=== PATIENT | female | born 1965 | race Caucasian/White ===

== ENCOUNTER 2021-02-23 08:21 | Outpatient (CLI) | payer BC | END 2021-02-23 08:22 | disposition home or self-care (01) | LOC: CSHMAMMO 08:21 | PROVIDERS: ATTEND Internal Medicine Medical Oncology | DX: Z12.31 Encounter for screening mammogram for malignant neoplasm of breast (principal) | CPT/HCPCS: 77063; 77067 ==

== ENCOUNTER 2024-03-20 09:35 | Outpatient (CLI) | payer BC | END 2024-03-20 09:36 | disposition home or self-care (01) | LOC: CSHMAMMO 09:35 | PROVIDERS: ATTEND Family Medicine | DX: Z12.31 Encounter for screening mammogram for malignant neoplasm of breast (principal); Z80.3 Family history of malignant neoplasm of breast; Z98.890 Other specified postprocedural states | CPT/HCPCS: 77063; 77067 ==

== ENCOUNTER 2024-04-04 07:31 | Outpatient (CLI) | payer BC | END 2024-04-04 07:32 | disposition home or self-care (01) | LOC: CSHCT 07:31 | PROVIDERS: ATTEND Family Medicine | DX: Z12.2 Encounter for screening for malignant neoplasm of respiratory organs (principal); F17.210 Nicotine dependence, cigarettes, uncomplicated; M85.9 Disorder of bone density and structure, unspecified | CPT/HCPCS: 71271 ==

== ENCOUNTER 2024-07-03 08:24 | Outpatient (CLI) | payer BC | END 2024-07-03 08:25 | disposition home or self-care (01) | LOC: CSHMAMMO 08:24 | PROVIDERS: ATTEND Family Medicine | DX: Z78.0 Asymptomatic menopausal state (principal); M85.851 Other specified disorders of bone density and structure, right thigh; M85.852 Other specified disorders of bone density and structure, left thigh | CPT/HCPCS: 77080 ==